=== PATIENT | female | born 1980 | race Caucasian/White ===

== ENCOUNTER 2017-03-30 05:51 | Inpatient (IN) | payer OTHER ==
[~2017-03-30] VITALS: Ht 157.5 cm; Wt 65.9 kg
[2017-03-30] VITALS (42 sets, daily range): BP systolic 102–135; BP diastolic 61–93; PULSE 68–127; TEMP 97.8–98.8
[2017-03-30] MEDS ORDERED: CLARITIN 1010 MG/TAB PO (06:39)
[2017-03-30] MEDS ORDERED: ZOVIRAX400 MG PO (06:40)
[2017-03-30 07:00] LABS: BASO # 0.1 (0.0-0.2); BASO % 0.6 % (0.0-2.0); EOS # 0.1 (0.0-0.7); EOS % 0.8 % (0-4.0); GRAN # 8.4 (1.4-6.5); GRAN % 79.2 % (42.2-75.2); LYMPH # 1.3 (1.2-3.4); LYMPH % 12.6 % (20.0-51.0); MEAN CELL VOLUME 92 fl (80.0-100.0); MEAN CORPUSCULAR HGB CONC 34 g/dl (33.0-37.0); MEAN PLATELET VOLUME 9.3 fl (7.4-10.4); MONO # 0.7 (0.1-0.6); MONO % 6.3 % (1.7-9.3); PLATELET COUNT 228 K/mm3 (130-400); RED BLOOD COUNT 3.78 M/mm3 (4.10-5.30); WHITE BLOOD COUNT 10.6 K/mm3 (4.8-10.8)
[2017-03-30 07:03] LABS: HEMATOCRIT 34.7 % (37.0-47.0); HEMOGLOBIN 11.9 g/dl (12.5-16.0); MEAN CORPUSCULAR HEMOGLOBIN 31 pg (27.0-31.0)
[2017-03-31 03:30] VITALS: BP 120/72; PULSE 100; TEMP 87.8
[2017-03-31 07:15] VITALS: BP 113/74; PULSE 100; TEMP 98.2
[2017-03-31] MEDS ORDERED: PERCOCET 325 MG1 TA2 PO (07:46)
[2017-03-31] MEDS ORDERED: IBU600 MG PO (07:46)
[2017-03-31 08:08] LABS: BASO % 0.2 % (0.0-2.0); EOS # 0.1 (0.0-0.7); EOS % 0.5 % (0-4.0); GRAN % 81.7 % (42.2-75.2); LYMPH # 1.2 (1.2-3.4); LYMPH % 10.6 % (20.0-51.0); MEAN CELL VOLUME 93 fl (80.0-100.0); MEAN CORPUSCULAR HGB CONC 34 g/dl (33.0-37.0); MEAN PLATELET VOLUME 8.9 fl (7.4-10.4); MONO # 0.7 (0.1-0.6); MONO % 6.6 % (1.7-9.3); PLATELET COUNT 190 K/mm3 (130-400); RED BLOOD COUNT 3.04 M/mm3 (4.10-5.30)
[2017-03-31 08:10] LABS: HEMATOCRIT 28.3 % (37.0-47.0); HEMOGLOBIN 9.5 g/dl (12.5-16.0); MEAN CORPUSCULAR HEMOGLOBIN 31 pg (27.0-31.0)
[2017-03-31 11:30] VITALS: BP 127/81; PULSE 106; TEMP 98
[2017-03-31 16:15] VITALS: BP 113/74; PULSE 113; TEMP 97.9
[2017-03-31 20:20] VITALS: BP 117/75; PULSE 99; TEMP 98.9
[2017-04-01 07:00] VITALS: BP 126/80; PULSE 95; TEMP 98.1
== END 2017-04-01 13:15 | disposition home or self-care (01) | DRG 766 ==
LOC: LDRO 05:51 → LDR 06:13 → OB 06:13 → LDRO 04-09 10:10
PROVIDERS: Obstetrics & Gynecology
PROC: 10D00Z1 Extraction of Products of Conception, Low, Open Approach (ICD-10-PCS; principal; 2017-03-30)
DX: O48.0 Post-term pregnancy (principal); O99.824 Streptococcus B carrier state complicating childbirth; O76 Abnormality in fetal heart rate and rhythm complicating labor and delivery; Z3A.40 40 weeks gestation of pregnancy; Z37.0 Single live birth
CPT/HCPCS: J0690; J1885; J2270; J2370; J2405; J2540; J2590; J2795; J7120

== ENCOUNTER → 2019-04-26 | Outpatient (CLI) | payer OTHER ==
[~2019-04-26] MED LIST: CLARITIN 1010 MG/TAB PO; IBU600 MG PO; NORMODYNE200 MG PO; PERCOCET 325 MG1 TA2 PO; PRENATAL TABLET PO; ZOVIRAX400 MG PO
--- NOTE | 2019-04-26 12:59 | NUR ---
Gena MendezReji and her into walk in clinic with 3 week old Kenan for evaluation and weight check. Kenan was born on [birth year] with a weight of 8# 5 oz. Gena states Kenan is nursing approx 9 times per day and is have 8 wet and soiled diapers per day. Gena expresses concern with her latch as her nipple is mishaped after feeds. She also states Kenan is often fussy in the evening/night hours, even after feeding bilaterally, so they give him 1-3 oz EBM or formula. She states after supplement he is sometimes still very fussy. Kenan's pre-feed weight today was 9#11.9 oz (4420 gm). Parents report he weighed 8# 15 oz one week ago at doctor's appointment. LC assisted Kenan with obtaining a deep latch and offered suggestions on how to obtain independently. Kenan nursed bilaterally, maintaining a good latch, with a total gain of 3 oz (84 ml). POC: Continue to feed ad mayank, decrease or eliminate supplemental feedings to reduce risk of overfeeding/ stomachache, as infant is nursing well and has showed excellant gain. Return to clinic as desired for weight check or with other concerns. Questions encouraged and answered. Understanding verbalized.
== END ==
LOC: OLC 11:58
DX: Z39.1 Encounter for care and examination of lactating mother (principal); Z71.89 Other specified counseling